=== PATIENT | female | born 1945 | race Caucasian/White ===

== ENCOUNTER → 2024-04-11 06:34 | Outpatient (REF) | payer OTHER, SELFPAY | LOC: MRI 3T 06:34 | PROVIDERS: ATTENDING PHYSICIAN Physician Assistant Medical; FAMILY PHYSICIAN Physician Assistant Medical | DX: M54.50 Low back pain, unspecified (principal) | CPT/HCPCS: 72148 ==

== ENCOUNTER 2024-05-20 06:37 | Inpatient (IN) | payer OTHER, SELFPAY ==
[2024-04-23 11:39] LABS: Hematocrit 44.8 % (37.0-47.0); Hemoglobin 15.5 g/dL (12.0-16.0); Mean Corp Hgb Conc. 34.6 g/dL (33.0-37.0); Mean Corpuscular Hgb 31.6 pg (27.0-31.0); Mean Corpuscular Volume 91.2 fL (81.0-99.0); Mean Platelet Volume 10.6 fL (7.4-10.4); Platelet Count 254 10^3/uL (130-400); Red Blood Cell Count 4.91 10^6/uL (4.20-5.40); Red Cell Dist. Width 13.2 % (11.5-14.5); White Blood Cell Count 6.5 10^3/uL (4.8-10.8)
[2024-04-23 12:18] LABS: ALT (SGPT) 16 U/L (0-35); AST (SGOT) 22 U/L (14-36); Albumin 4.6 g/dl (3.5-5.0); Alkaline Phosphatase 64 U/L (38-126); Blood Urea Nitrogen 22 mg/dl (7-17); Calcium 9.8 mg/dl (8.4-10.2); Carbon Dioxide 25 mmol/L (22-30); Chloride 104 mmol/L (98-107); Glucose 94 mg/dl (70-99); Potassium 4.5 mmol/L (3.5-5.1); Sodium 142 mmol/L (135-145); Total Bilirubin 1.1 mg/dl (0.2-1.3); Total Protein 7.3 g/dl (6.3-8.2); eGFR > 60.00
[2024-04-23 12:56] VITALS: BMI 29.5
[2024-04-23 13:12] LABS: Glycohemoglobin (HgbA1c) 5.6 % (4.0-5.6)
[2024-05-14 09:40] VITALS: BMI 29.5
[2024-05-20] VITALS (11 sets, daily range): BP systolic 97–150; BP diastolic 46–91; PULSE 84; O2SAT 96; BMI 29.5
--- NOTE | 2024-05-20 07:08 | W.PN.UPDATE ---
Update Note
Progress Note Update
L LG Dr. Rivera 05/20/24
DVT Proph-Eliquis 2.5mg bid--advise home SCD device
-hx Factot V Leiden heterozygous
-venous varicosities
-personal hx superficial thrombophlebitis
-FH clotting disorder and DVT
-age>40,borderline obesity
[2024-05-20] MEDS: TYLENOL 650 MG PO ×3 (07:23→21:00)
[2024-05-20] MEDS: CELEBREX 200 MG PO (07:23)
--- NOTE | 2024-05-20 07:27 | W.DS.TRANS ---
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
-
Discharge Instructions:
Sleep Apnea Risk Low
Discharge Diagnosis/Procedures L LG Dr. Rivera 05/20/24
Diet As tolerated
Activity With Walker
Additional Activity HIP PRECAUTIONS
Driving Restrictions No driving
Bathing Restrictions OK to Shower
Instructions:
Stand-Alone Forms: Total Hip/Knee Replacement D/C
Changes to Home Medications: Yes
Discharge Medications:
DC Medications w/original date entered in [employer]
calcium 300 mg-D3 20 mcg-magnesium 25 mg-coppr 0.5 [id number] tablet (Caltrate-D3 Plus Minerals) 1 ea PO BID 12/22/20
cyclosporine 0.05 % eye drops in a dropperette (Restasis) 1 drp BOTH EYES BID 12/22/20
fish oil-dha-epa 1,200 mg-144 mg-216 mg capsule 1 ea PO BID ##0 01/12/21
glucosamine [id number] foreign 1,500 mg-400 unit-100 mg tablet (Osteo Bi-Flex (5-Loxin)) 1 ea PO BID ##0 01/12/21
vitamin E (dl, acetate) 180 mg (400 unit) capsule 400 units PO DAILY ##0 01/12/21
ascorbate calcium (vitamin C) 500 mg tablet 500 mg PO BID 05/14/24
aspirin 81 mg tablet,delayed release 81 mg PO DAILY 05/14/24
mupirocin 2 % topical ointment 1 applic topical BID 05/14/24
acetaminophen 325 mg tablet (Tylenol) 650 mg (2 x 325 mg) PO QID #1 tab 05/20/24
apixaban 2.5 mg tablet (Eliquis) 2.5 mg PO BID Blood clot prevention/tx #90 tabs 05/20/24
dexamethasone 4 mg tablet 4 mg PO BID inflammation #6 tabs 05/20/24
docusate sodium 100 mg capsule (Colace) 100 mg PO BID stool softner #1 cap 05/20/24
famotidine 20 mg tablet 20 mg PO HS GI prophylaxis #30 tabs 05/20/24
magnesium hydroxide 400 mg/5 mL oral suspension (Milk of Magnesia) 30 ml PO HS PRN Constipation #1 mL 05/20/24
ondansetron 4 mg disintegrating tablet 4 mg PO Q6H PRN n/v #20 tabs 05/20/24
oxycodone 5 mg tablet 5 mg PO Q6H PRN 1 tab moderate pain, 2 tabs severe pain #30 tabs 05/20/24
sennosides 8.6 mg tablet (Senokot) 17.2 mg (2 x 8.6 mg) PO BID laxative #2 tabs 05/20/24
Home Medication Changes
apixaban 2.5 mg tablet (Eliquis) 2.5 mg PO BID Blood clot prevention/tx #90 tabs 05/20/24
dexamethasone 4 mg tablet 4 mg PO BID inflammation #6 tabs 05/20/24
docusate sodium 100 mg capsule (Colace) 100 mg PO BID stool softner #1 cap 05/20/24
famotidine 20 mg tablet 20 mg PO HS GI prophylaxis #30 tabs 05/20/24
magnesium hydroxide 400 mg/5 mL oral suspension (Milk of Magnesia) 30 ml PO HS PRN Constipation #1 mL 05/20/24
ondansetron 4 mg disintegrating tablet 4 mg PO Q6H PRN n/v #20 tabs 05/20/24
oxycodone 5 mg tablet 5 mg PO Q6H PRN 1 tab moderate pain, 2 tabs severe pain #30 tabs 05/20/24
sennosides 8.6 mg tablet (Senokot) 17.2 mg (2 x 8.6 mg) PO BID laxative #2 tabs 05/20/24
Pending Results: No
[2024-05-20] MEDS: EMEND 40 MG PO (07:31)
[2024-05-20] MEDS: ROXICODONE 5 MG PO (10:16)
--- NOTE | 2024-05-20 11:15 | PTCARENOTE ---
pt arrived to 2S room 2113 from the PACU at 1100. pt oriented to room, call ortiz and plan of care with verbalized understanding. Admission database and assessment completed as documented. Left hip surgical dressing w/scant amount of drainage
noted. +sensation, +movement, +pedal pulses b/l.
denies pain or nausea. IVF infusing. tolerating sips of water. care ongoing.
[2024-05-20] MEDS: RESTASIS 0.05% OPHTHALMIC EMULSION BOTH EYES (11:48)
[2024-05-20] MEDS: NORMOSOL-R/PLASMALYTE-A 1000 IV (11:53)
[2024-05-20] MEDS: ZOFRAN 4 MG IV (14:13)
[2024-05-20] MEDS: TYLENOL PO (16:00)
[2024-05-20] MEDS: ANCEF 5 IV ×2 (17:48→23:49)
[2024-05-20] MEDS: ELIQUIS 2.5 MG PO (17:51)
[2024-05-20] MEDS: SENOKOT 17.2 MG PO (20:45)
[2024-05-20] MEDS: COLACE 100 MG PO (20:45)
[2024-05-20] MEDS: BACTROBAN 2% OINTMENT 1 APPLIC NASAL (21:00)
--- NOTE | 2024-05-20 21:00 | PTCARENOTE ---
Pt refuses to walk to bathroom. Stated she felt very nauseas earlier today and doesn't want to push it. Care ongoing.
[2024-05-20] MEDS: DECADRON 4 MG PO (21:37)
[2024-05-20] MEDS: NEURONTIN 300 MG PO (21:38)
[2024-05-20] MEDS: RESTASIS 0.05% OPHTHALMIC EMULSION 1 DROPS BOTH EYES (21:38)
[2024-05-21] MEDS: TYLENOL PO (00:57)
[2024-05-21] MEDS: TYLENOL 650 MG PO ×2 (03:20→08:23)
[2024-05-21 03:34] VITALS: BP 105/51
--- NOTE | 2024-05-21 04:38 | PTCARENOTE ---
Pt ambulated to toilet w RW and standby assist without difficulty. pt noticeably weak but otherwise stable on her feet. care ongoing.
[2024-05-21] MEDS: ELIQUIS 2.5 MG PO (05:38)
[2024-05-21 08:08] VITALS: BP 121/63
[2024-05-21] MEDS: BACTROBAN 2% OINTMENT 1 APPLIC NASAL (08:21)
[2024-05-21] MEDS: DECADRON 4 MG PO (08:23)
[2024-05-21] MEDS: SENOKOT 17.2 MG PO (08:23)
[2024-05-21] MEDS: COLACE 100 MG PO (08:23)
[2024-05-21] MEDS: RESTASIS 0.05% OPHTHALMIC EMULSION 1 DROPS BOTH EYES (08:24)
--- NOTE | 2024-05-21 09:56 | W.PN.ORTHO ---
Today's Communication / Plan
-
d/c
Assessment
.
Distal Motor Intact: Yes
Dressing:
Clean, dry and intact.
Assessment:
DVT Proph-Eliquis 2.5mg bid--advise home SCD device--advised
-hx Factot V Leiden heterozygous
-venous varicosities
-personal hx superficial thrombophlebitis
-FH clotting disorder and DVT
-age>40,borderline obesity
Plan
.
Surgery / Date: L LG Rivera 05/20/24
DVT Prophylaxis: Other (Eliquis + SCD)
Activity:
Out of bed.
PT/OT
Discharge Plan: Home w/ Outpatient PT
Subjective
.
.:
Patient resting comfortably.
Vital Signs and Labs
.
Vital Signs and Labs:
Lab Results
04/23/24 11:14
04/23/24 11:14
Temp Pulse Resp BP Pulse Ox
98.2 F 82 18 121/63 95
05/21/24 08:08 05/21/24 08:08 05/21/24 08:08 05/21/24 08:08 05/21/24 08:08
Non-invasive Hgb result: 14
Physical Exam
-
HEENT: No pallor, cyanosis, or jaundice. Throat clear.
NECK: Supple. No JVD.
RESPIRATORY: Lungs clear to auscultation.
CVS: S1, S2 normal. RRR.� No murmur, rub or gallop.
ABDOMEN: Soft, non-tender. No distension. BS+/normal.
EXTREMITIES: strength equal, no calf pain with palpation
MANAGER UTILIZATION: AOx3. No focal deficits. draw furnace tender grossly intact
[2024-05-21 09:59] VITALS: BP 111/60; PULSE 82; O2SAT 95
--- NOTE | 2024-05-21 10:33 | CM ---
Patient seen bedside with spouse, initial assessment completed. Patient resides in a single story home, no steps to enter. Patient has a rolling walker at home, cane, shower stool. Patient confirms she has a script for outpatient therapy, is
scheduled to start this at 12:30 p.m. Patient confirms PCP Merrill Melendez, pharmacy [facility], confirms prescription coverage. CM spoke with pharmacist at [facility], cost of Eliquis $47 a month, patient aware of cost, able to
afford, provided coupon for medication. Patient confirms transportation home. IMM reviewed, signed, placed in chart, provided with copy. CM will continue to follow for all discharge planning needs.
Plan; home with family, outpatient PT.
[2024-05-21 11:00] VITALS: BP 112/69
[2024-05-21 11:13] VITALS: BP 135/63; PULSE 87
== END 2024-05-21 11:54 | disposition home or self-care (01) | DRG 470 ==
LOC: 2 SOUTH 06:37
PROVIDERS: ADMITTING PHYSICIAN Specialist; FAMILY PHYSICIAN Physician Assistant Medical; REFERRING PHYSICIAN Internal Medicine Hematology & Oncology
PROC: 0SRB04A Replacement of Left Hip Joint with Ceramic on Polyethylene Synthetic Substitute, Uncemented, Open Approach (ICD-10-PCS; 2024-05-20)
DX: M16.12 Unilateral primary osteoarthritis, left hip (principal); D68.51 Activated protein C resistance; E66.9 Obesity, unspecified; Z68.29 Body mass index [BMI] 29.0-29.9, adult; Z83.2 Family history of diseases of the blood and blood-forming organs and certain disorders involving the immune mechanism
CPT/HCPCS: 36415; 73502; 80053; 83036; 85027; 87070; 93005; 97110; 97162; 97166; 97530; 97535; C1713; C1776

== ENCOUNTER 2024-08-19 06:27 | Day surgery (SDC) | payer OTHER, SELFPAY ==
[2024-08-02 10:14] VITALS: BMI 28.8
[2024-08-02 10:51] LABS: Hematocrit 43.6 % (37.0-47.0); Hemoglobin 14.6 g/dL (12.0-16.0); Mean Corp Hgb Conc. 33.5 g/dL (33.0-37.0); Mean Corpuscular Hgb 30.5 pg (27.0-31.0); Mean Platelet Volume 10.4 fL (7.4-10.4); Platelet Count 306 10^3/uL (130-400); Red Blood Cell Count 4.79 10^6/uL (4.20-5.40); Red Cell Dist. Width 13.1 % (11.5-14.5); White Blood Cell Count 5.1 10^3/uL (4.8-10.8)
[2024-08-02 11:34] LABS: ALT (SGPT) 16 U/L (0-35); AST (SGOT) 21 U/L (14-36); Albumin 4.2 g/dl (3.5-5.0); Alkaline Phosphatase 71 U/L (38-126); Blood Urea Nitrogen 23 mg/dl (7-17); Calcium 9.8 mg/dl (8.4-10.2); Carbon Dioxide 29 mmol/L (22-30); Chloride 103 mmol/L (98-107); Estimated Creatinine Clearance 58 ml/min; Glucose 100 mg/dl (70-99); Potassium 4.5 mmol/L (3.5-5.1); Sodium 138 mmol/L (135-145); Total Bilirubin 0.9 mg/dl (0.2-1.3); Total Protein 6.8 g/dl (6.3-8.2); eGFR > 60.00
[2024-08-02 12:45] LABS: Glycohemoglobin (HgbA1c) 5.4 % (4.0-5.6)
[2024-08-02 15:59] VITALS: BMI 28.8
--- NOTE | 2024-08-07 11:36 | VNURNOTE ---
Chart reviewed. [facility] liaison rec'ed [place] Text from MORENO Espinosa regarding post op plan for patient. Patient is scheduled SDS 08/19 Total Hip Athroplasty and will stay overnight. Patient has outpt PT appt on 08/22. Will not require [facility]. [facility]
remains available if plans change.
[2024-08-19] VITALS (14 sets, daily range): BP systolic 113–154; BP diastolic 57–92; PULSE 66–84; O2SAT 100; BMI 28.8
[2024-08-19] MEDS: NORMOSOL-R/PLASMALYTE-A 1000 IV ×2 (09:10→14:40)
[2024-08-19] MEDS: CELEBREX 200 MG PO (09:10)
[2024-08-19] MEDS: TYLENOL 650 MG PO ×3 (09:10→20:01)
--- NOTE | 2024-08-19 10:40 | W.DS.TRANS ---
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
-
Discharge Instructions:
Sleep Apnea Risk Low
Discharge Diagnosis/Procedures R LG 08/19/24
Diet As tolerated
Activity With Walker
Additional Activity hip precautions
Driving Restrictions No driving
Bathing Restrictions OK to Shower
Other Services PT
Instructions:
Stand-Alone Forms: Total Hip/Knee Replacement D/C
Changes to Home Medications: Yes
Discharge Medications:
DC Medications w/original date entered in [employer]
calcium 300 mg-D3 20 mcg-magnesium 25 mg-coppr 0.5 [id number] tablet (Caltrate-D3 Plus Minerals) 1 ea PO BID Supplement 12/22/20
cyclosporine 0.05 % eye drops in a dropperette (Restasis) 1 drp BOTH EYES BID Eye Condition 12/22/20
ascorbate calcium (vitamin C) 500 mg tablet 500 mg PO BID Supplement 05/14/24
aspirin 81 mg tablet,delayed release 81 mg PO DAILY Blood Clot Prevention/Tx 05/14/24
fish oil-dha-epa 1,200 mg-144 mg-216 mg capsule 1 ea PO BID Supplement 05/21/24
vitamin E (dl, acetate) 180 mg (400 unit) capsule 400 units PO DAILY Supplement 05/21/24
apixaban 2.5 mg tablet (Eliquis) 2.5 mg PO BID Blood clot prevention/tx #70 tabs 08/02/24
dexamethasone 4 mg tablet 4 mg PO BID Anti-inflammatory #5 tabs 08/02/24
famotidine 20 mg tablet 20 mg PO HS #35 tabs 08/02/24
mupirocin 2 % topical ointment 1 applic intranasal BID #1 tube 08/02/24
oxycodone 5 mg tablet 5 - 10 mg (1 - 2 x 5 mg) PO Q6H PRN moderate-severe pain #30 tabs 08/02/24
scopolamine base 1 mg over 3 days transdermal patch 1 patch transdermal Q72H PRN nausea and vomiting #4 ea 08/02/24
acetaminophen 325 mg tablet (Tylenol) 650 mg (2 x 325 mg) PO QID #0 tabs 08/19/24
docusate sodium 100 mg capsule (Colace) 100 mg PO BID stool softner #1 cap 08/19/24
magnesium hydroxide 400 mg/5 mL oral suspension (Milk of Magnesia) 30 ml PO HS PRN Constipation #1 mL 08/19/24
sennosides 8.6 mg tablet (Senokot) 17.2 mg (2 x 8.6 mg) PO BID laxative #2 tabs 08/19/24
Home Medication Changes
aspirin 81 mg tablet,delayed release 81 mg PO DAILY Blood Clot Prevention/Tx 05/14/24
fish oil-dha-epa 1,200 mg-144 mg-216 mg capsule 1 ea PO BID Supplement 05/21/24
vitamin E (dl, acetate) 180 mg (400 unit) capsule 400 units PO DAILY Supplement 05/21/24
apixaban 2.5 mg tablet (Eliquis) 2.5 mg PO BID Blood clot prevention/tx #70 tabs 08/02/24
dexamethasone 4 mg tablet 4 mg PO BID Anti-inflammatory #5 tabs 08/02/24
famotidine 20 mg tablet 20 mg PO HS #35 tabs 08/02/24
mupirocin 2 % topical ointment 1 applic intranasal BID #1 tube 08/02/24
oxycodone 5 mg tablet 5 - 10 mg (1 - 2 x 5 mg) PO Q6H PRN moderate-severe pain #30 tabs 08/02/24
scopolamine base 1 mg over 3 days transdermal patch 1 patch transdermal Q72H PRN nausea and vomiting #4 ea 08/02/24
acetaminophen 325 mg tablet (Tylenol) 650 mg (2 x 325 mg) PO QID #0 tabs 08/19/24
docusate sodium 100 mg capsule (Colace) 100 mg PO BID stool softner #1 cap 08/19/24
magnesium hydroxide 400 mg/5 mL oral suspension (Milk of Magnesia) 30 ml PO HS PRN Constipation #1 mL 08/19/24
sennosides 8.6 mg tablet (Senokot) 17.2 mg (2 x 8.6 mg) PO BID laxative #2 tabs 08/19/24
Pending Results: No
--- NOTE | 2024-08-19 13:06 | W.PN.UPDATE ---
Update Note
Progress Note Update
R LG Rivera08/19/24
-early d/c-PSR
DVTppx-Eliquis+ SCD
hx thrombophlebitis
venous insufficiency
Factor V Leiden
[2024-08-19] MEDS: ROXICODONE 5 MG PO (13:48)
[2024-08-19] MEDS: TYLENOL PO (14:40)
--- NOTE | 2024-08-19 15:03 | CM ---
Met with pt and at bedside
Pt reports she lives with her in a ranch style home; no steps to enter
Independent with adl's, some assist around home. ambulates with
DME - rolling walker, single point cane, raised toilet seat, hip kit, grabber, compression sleeves
SNF/HH - denies past hx
Has ride at discharge
PCP - Merrill Melendez
Pharm - [facility]
Plan is for outpatient PT
PT/OT evals pending
Plan - anticipate home with outpatient PT pend PT/OT evals
[2024-08-19] MEDS: ELIQUIS 2.5 MG PO (20:01)
[2024-08-19] MEDS: COLACE 100 MG PO (20:01)
[2024-08-19] MEDS: ANCEF 5 IV (20:01)
[2024-08-19] MEDS: DECADRON 4 MG PO (20:01)
[2024-08-19] MEDS: SENOKOT 17.2 MG PO (20:01)
[2024-08-19] MEDS: RESTASIS 0.05% OPHTHALMIC EMULSION 1 DROPS BOTH EYES (20:02)
[2024-08-19] MEDS: BACTROBAN 2% OINTMENT 1 APPLIC NASAL (20:02)
[2024-08-20] MEDS: TYLENOL 650 MG PO ×3 (00:06→08:30)
[2024-08-20 02:56] VITALS: BP 109/50
[2024-08-20] MEDS: ANCEF 5 IV (04:13)
[2024-08-20] MEDS: ROXICODONE 5 MG PO (06:27)
[2024-08-20 07:07] VITALS: BP 126/52
[2024-08-20 08:22] VITALS: BP 127/52; BP 127/66; PULSE 79; O2SAT 99
[2024-08-20] MEDS: BACTROBAN 2% OINTMENT 1 APPLIC NASAL (08:29)
[2024-08-20] MEDS: RESTASIS 0.05% OPHTHALMIC EMULSION BOTH EYES ×2 (08:29→08:33)
[2024-08-20] MEDS: COLACE 100 MG PO (08:30)
[2024-08-20] MEDS: ELIQUIS 2.5 MG PO (08:30)
[2024-08-20] MEDS: SENOKOT 17.2 MG PO (08:30)
[2024-08-20] MEDS: DECADRON 4 MG PO (08:30)
--- NOTE | 2024-08-20 09:21 | W.PN.ORTHO ---
Today's Communication / Plan
-
d/c
Assessment
.
Distal Motor Intact: Yes
Dressing:
Clean, dry and intact.
Assessment:
DVTppx-Eliquis+ SCD
hx thrombophlebitis
venous insufficiency
Factor V Leiden
Plan
.
Surgery / Date: R LG Rivera 08/19/24-early d/c
DVT Prophylaxis: Other (Eliquis)
Activity:
Out of bed.
PT/OT
Discharge Plan: Home w/ Outpatient PT
Subjective
.
.:
Patient resting comfortably.
Vital Signs and Labs
.
Vital Signs and Labs:
Lab Results
08/02/24 10:24
08/02/24 10:24
Temp Pulse Resp BP Pulse Ox
98.0 F 71 18 126/52 97
08/20/24 07:07 08/20/24 07:07 08/20/24 07:07 08/20/24 07:07 08/20/24 07:07
Non-invasive Hgb result: 11.8
Physical Exam
-
HEENT: No pallor, cyanosis, or jaundice. Throat clear.
NECK: Supple. No JVD.
RESPIRATORY: Lungs clear to auscultation.
CVS: S1, S2 normal. RRR.� No murmur, rub or gallop.
ABDOMEN: Soft, non-tender. No distension. BS+/normal.
EXTREMITIES: strength equal, no calf pain with palpation
NETWORK DESIGNER: AOx3. No focal deficits. addiction psychiatrist grossly intact
[2024-08-20 09:48] VITALS: BP 119/52; PULSE 65; O2SAT 98
--- NOTE | 2024-08-20 10:00 | CM ---
CM reviewed chart and noted dc order
Bedside meeting with pt and spouse
Plan to start outpt therapy on Thrs 3/6 at [facility]
No other dc needs noted
She has outpt therapy script
Discharge Disposition- home with outpt therapy, family transport
== END 2024-08-20 10:20 | disposition home or self-care (01) ==
LOC: SDS 06:27
PROVIDERS: ATTENDING PHYSICIAN Specialist; FAMILY PHYSICIAN Physician Assistant Medical; OTHER PHYSICIAN Physician Assistant
DX: M16.11 Unilateral primary osteoarthritis, right hip (principal)
CPT/HCPCS: 27130; 36415; 73502; 80053; 83036; 85027; 87070; 97110; 97116; 97162; 97166; 97530; 97535; C1713; C1776